=== PATIENT | male | born 1975 | race African-American/Black ===

== ENCOUNTER 2019-10-15 17:08 | Emergency (ER) | payer SELFPAY ==
[~2019-10-15] VITALS: Ht 188 cm; Wt 109.0 kg
[2019-10-15] MEDS ORDERED: IBUPROFEN 800MG TABLET PO ONE (17:30)
[2019-10-15] MEDS ORDERED: ACETAMINOPHEN 500MG TABLET PO ONE (17:30)
[2019-10-15 17:44] VITALS: BP 136/94
== END 2019-10-15 18:17 | disposition home or self-care (01) ==
LOC: ER 17:08
DX: S43.101A Unspecified dislocation of right acromioclavicular joint, initial encounter (principal); R03.0 Elevated blood-pressure reading, without diagnosis of hypertension; W01.0XXA Fall on same level from slipping, tripping and stumbling without subsequent striking against object, initial encounter; Y93.89 Activity, other specified; Y92.89 Other specified places as the place of occurrence of the external cause
CPT/HCPCS: 29105; 73030; 99283

== ENCOUNTER 2021-02-15 00:35 | Emergency (ER) | payer SELFPAY ==
[~2021-02-15] VITALS: Ht 188 cm; Wt 109.0 kg
[2021-02-15] MEDS ORDERED: ACETAMINOPHEN 325MG TABLET PO ONE (01:45)
[2021-02-15] MEDS ORDERED: TETANUS, DIPHTHERIA, PERTUSSIS VAC/PF 0.5ML (>7YR OLD) IM ONE (01:45)
[2021-02-15] MEDS ORDERED: BACITRACIN ZINC OINT UDPKT TOP ONE (01:45)
[2021-02-15] MEDS ORDERED: HYDROCODONE/ACETAMINOPHEN 5/325MG TABLET PO ONE (03:15)
[2021-02-15] MEDS ORDERED: HYDR-4001 MT (04:07)
[2021-02-15] MEDS ORDERED: NAPR-1176 MT (04:07)
[2021-02-15 05:06] VITALS: BP 149/100
== END 2021-02-15 05:07 | disposition home or self-care (01) ==
LOC: ER 00:49
DX: S82.491A Other fracture of shaft of right fibula, initial encounter for closed fracture (principal); S09.8XXA Other specified injuries of head, initial encounter; V49.49XA Driver injured in collision with other motor vehicles in traffic accident, initial encounter; Y93.89 Activity, other specified; Y92.89 Other specified places as the place of occurrence of the external cause; Y99.8 Other external cause status
CPT/HCPCS: 29505; 73590; 90471; 90715; 99285

== ENCOUNTER 2023-01-01 20:48 | Emergency (ER) | payer SELFPAY ==
[~2023-01-01] VITALS: Ht 185.4 cm; Wt 91.0 kg
[~2023-01-01 20:48] MED LIST: HYDR-4001 MT; NAPR-1176 MT
[2023-01-01 20:49] VITALS: BP 140/95; PULSE 72; RESP 12; TEMP 97.9; O2SAT 97
== END 2023-01-01 21:59 | disposition left against medical advice (07) ==
LOC: ER 20:48
DX: Z53.21 Procedure and treatment not carried out due to patient leaving prior to being seen by health care provider (principal)
CPT/HCPCS: 99281

== ENCOUNTER 2023-01-21 02:18 | Emergency (ER) | payer SELFPAY ==
[~2023-01-21] VITALS: Ht 188 cm; Wt 110.0 kg
[2023-01-21 02:30] VITALS: BP 128/81; PULSE 88; RESP 18; TEMP 98; O2SAT 99
== END 2023-01-21 06:24 | disposition left against medical advice (07) ==
LOC: ER 02:18
DX: Z53.21 Procedure and treatment not carried out due to patient leaving prior to being seen by health care provider (principal)
CPT/HCPCS: 99281

== ENCOUNTER 2024-02-14 20:43 | Emergency (ER) | payer MEDICAID ==
[~2024-02-14] VITALS: Ht 180.3 cm; Wt 90.0 kg
[2024-02-14 20:49] VITALS: O2SAT 98
[2024-02-14 21:39] LABS: BASOPHILS % 0.4 % (0.0-2.0); EOSINOPHILS % 0.4 % (0.0-5.0); HEMATOCRIT. 42.1 % (42.0-52.0); HEMOGLOBIN. 13.8 g/dL (14.0-18.0); LYMPHOCYTES % 23.1 % (20.0-50.0); MEAN CORPUSCULAR HEMOGLOBIN 31.9 pg (28.0-32.0); MEAN CORPUSCULAR HGB CONC 32.7 g/dL (31.0-37.0); MEAN CORPUSCULAR VOLUME 97.4 fL (80.0-94.0); MEAN PLATELET VOLUME 10.5 fl (7.4-10.4); NEUTROPHILS % 68.1 % (40.0-76.0); PLATELET 174 x1000/uL (130-400); RED BLOOD CELL COUNT 4.32 mill/uL (4.7-6.1); RED CELL DISTRIBUTION WIDTH 14.2 % (11.6-14.6); WHITE BLOOD COUNT 10.1 x1000/uL (4.5-11.0)
[2024-02-14 21:44] LABS: CHLORIDE 108 mEq/L (98-107); POTASSIUM 4.6 mEq/L (3.5-5.1); SODIUM 141 mEq/L (136-145)
[2024-02-14 21:45] LABS: CALCIUM 10.3 mg/dL (8.7-10.4); CARBON DIOXIDE 27 mEq/L (21-32)
[2024-02-14 21:50] LABS: CREATININE 1.1 mg/dL (0.6-1.3); GLUCOSE 95 mg/dL (70-105); UREA NITROGEN BLOOD 16 mg/dL (9-23)
[2024-02-14 21:51] LABS: AMMONIA < 17 uMol/L (<32); ETHANOL BLOOD < 10 mg/dL (<10); TROPONIN I HIGH SENSITIVITY < 4 ng/L (3.0-53)
[2024-02-14 21:52] LABS: ACETAMINOPHEN < 2 ug/mL (10-30)
[2024-02-14 21:55] LABS: THYROID STIMULATING HORMONE 0.68 uIU/mL (0.55-4.78)
[2024-02-14 23:00] VITALS: TEMP 97.8
[2024-02-14 23:57] LABS: CLARITY URINE CLEAR (CLEAR); COLOR URINE YELLOW (YELLOW); GLUCOSE URINE NEGATIVE (NEGATIVE); KETONES URINE NEGATIVE (NEGATIVE); LEUKOCYTE ESTERASE URINE NEGATIVE (NEGATIVE); NITRITE URINE NEGATIVE (NEGATIVE); OCCULT BLOOD URINE NEGATIVE (NEGATIVE); PH URINE 6.5 (4.5-8.0); PROTEIN URINE NEGATIVE (NEGATIVE); SPECIFIC GRAVITY URINE 1.008 (1.005-1.030); UROBILINOGEN URINE 0.2 E.U./dL (0.2-1.0)
[2024-02-15 00:04] LABS: *AMPHETAMINES SCREEN URINE NEGATIVE (NEGATIVE); *BENZODIAZEPINES SCREEN URINE NEGATIVE (NEGATIVE)
[2024-02-15 00:05] LABS: *BARBITURATES SCREEN URINE NEGATIVE (NEGATIVE); *COCAINE SCREEN URINE NEGATIVE (NEGATIVE); CANNABINOID URINE SCREEN NEGATIVE (NEGATIVE); ECSTASY MDMA SCREEN URINE NEGATIVE (NEGATIVE); METHADONE URINE SCREEN NEGATIVE (NEGATIVE); OPIATES URINE SCREEN NEGATIVE (NEGATIVE); PHENCYCLIDINE URINE SCREEN PRESUMTIVE POSITIVE (NEGATIVE)
[2024-02-15 01:34] VITALS: BP 133/88; PULSE 80; RESP 15
== END 2024-02-15 01:34 | disposition home or self-care (01) ==
LOC: ER 20:43
DX: S00.81XA Abrasion of other part of head, initial encounter (principal); R56.9 Unspecified convulsions; F16.10 Hallucinogen abuse, uncomplicated; X58.XXXA Exposure to other specified factors, initial encounter; Y93.89 Activity, other specified; Y92.89 Other specified places as the place of occurrence of the external cause; Y99.8 Other external cause status
CPT/HCPCS: 36415; 71045; 80048; 80305; 80307; 80320; 80329; 81003; 82140; 82962; 84443; 84484; 85025; 93005; 99285; G0480

== ENCOUNTER 2024-02-22 22:19 | Inpatient (IN) | payer MEDICAID ==
[~2024-02-22] VITALS: Ht 188 cm; Wt 102.5 kg
[2024-02-22 22:22] VITALS: O2SAT 96
[2024-02-22 23:25] LABS: BG BASE EXCESS -1.3 mmol/L (-2.0-2.0); BG CARBOXYHEMOGLOBIN 1.7 % (0.5-1.5); BG DEOXYHEMOGLOBIN 3.9 % (0.0-5.0); BG HCO3 ACT 24.5 mmol/L (22.0-26.0); BG METHEMOGLOBIN 0.1 % (0.0-1.5); BG OXYHEMOGLOBIN 94.3 % (94.0-97.0); BG PCO2 45.8 mmHg (35.0-45.0); BG PH 7.347 (7.350-7.450); BG TOTAL HEMOGLOBIN 12.9 g/dL (12.0-18.0); BG VENT MODE ROOM AIR
[2024-02-22 23:32] LABS: BASOPHILS % 0.3 % (0.0-2.0); EOSINOPHILS % 1.4 % (0.0-5.0); HEMATOCRIT. 38.5 % (42.0-52.0); HEMOGLOBIN. 12.5 g/dL (14.0-18.0); LYMPHOCYTES % 21.4 % (20.0-50.0); MEAN CORPUSCULAR HEMOGLOBIN 31.8 pg (28.0-32.0); MEAN CORPUSCULAR HGB CONC 32.4 g/dL (31.0-37.0); MEAN CORPUSCULAR VOLUME 98.3 fL (80.0-94.0); MEAN PLATELET VOLUME 10.6 fl (7.4-10.4); MONOCYTES % 7.1 % (2.0-8.0); NEUTROPHILS % 69.8 % (40.0-76.0); PLATELET 162 x1000/uL (130-400); RED BLOOD CELL COUNT 3.91 mill/uL (4.7-6.1); RED CELL DISTRIBUTION WIDTH 14.3 % (11.6-14.6); WHITE BLOOD COUNT 9.7 x1000/uL (4.5-11.0)
[2024-02-22 23:44] LABS: CHLORIDE 111 mEq/L (98-107); POTASSIUM 3.7 mEq/L (3.5-5.1); SODIUM 143 mEq/L (136-145)
[2024-02-22 23:45] LABS: CALCIUM 9.1 mg/dL (8.7-10.4); CARBON DIOXIDE 27 mEq/L (21-32)
[2024-02-22 23:50] LABS: GLUCOSE 117 mg/dL (70-105); UREA NITROGEN BLOOD 14 mg/dL (9-23)
[2024-02-22 23:52] LABS: ACETAMINOPHEN < 2 ug/mL (10-30); ALANINE AMINOTRANSFERASE 24 IU/L (10-49); ALBUMIN 4.1 g/dL (3.2-4.8); ASPARTATE AMINOTRANSFERASE 20 IU/L (<34)
[2024-02-22 23:53] LABS: BILIRUBIN TOTAL 0.3 mg/dL (0.1-1.0); PROTEIN TOTAL 6.6 g/dL (6.0-8.3)
[2024-02-22 23:56] LABS: BILIRUBIN DIRECT < 0.1 mg/dL (<=3.0); ETHANOL BLOOD < 10 mg/dL (<10)
[2024-02-23] MEDS: LEVETIRACETAM 500MG PREMIX 100 ML IV ONE ×2 (02:04→02:42)
[2024-02-23 02:59] LABS: TROPONIN I HIGH SENSITIVITY < 4 ng/L (3.0-53)
[2024-02-23] MEDS ORDERED: GUAIFENESIN 200MG/10ML SUGAR FREE UDC PO PRN (09:00)
[2024-02-23] MEDS ORDERED: CLONIDINE 0.1MG TABLET PO PRN (09:00)
[2024-02-23] MEDS ORDERED: MAGNESIUM/ALUMINUM HYDROXIDE/SIMETHICONE 30ML UDC PO PRN (09:00)
[2024-02-23] MEDS ORDERED: DOCUSATE SODIUM 100MG CAPSULE PO PRN (09:00)
[2024-02-23] MEDS ORDERED: ACETAMINOPHEN 325MG TABLET PO PRN (09:00)
[2024-02-23] MEDS ORDERED: ONDANSETRON HCL 4MG/2ML INJ IV PRN (09:00)
[2024-02-23] MEDS ORDERED: IPRATROPIUM/ALBUTEROL 0.5-3(2.5)MG/3ML NEB HHN PRN (09:00)
[2024-02-23] MEDS ORDERED: FAMO20TA8 PO (09:06)
[2024-02-23] MEDS ORDERED: BACL20TA PO (09:06)
[2024-02-23] MEDS ORDERED: PREG75CA76 PO (09:06)
[2024-02-23] MEDS ORDERED: GABA-532 PO (09:06)
[2024-02-23] MEDS ORDERED: FAMOTIDINE(NEO) 1MG/ML SUSP PO SCH (09:15)
[2024-02-23 10:00] VITALS: BP 126/94; PULSE 60; RESP 16; TEMP 36.14
[2024-02-23] MEDS: BACLOFEN 10MG TABLET PO SCH (10:52)
[2024-02-23] MEDS: FAMOTIDINE 20MG TABLET PO SCH (10:52)
[2024-02-23 11:29] LABS: PHOSPHORUS 3.4 mg/dL (2.5-4.9)
[2024-02-23 12:00] VITALS: BP 127/91; PULSE 61; RESP 12; TEMP 36.114; O2SAT 100
[2024-02-23 12:13] LABS: TROPONIN I HIGH SENSITIVITY < 4 ng/L (3.0-53)
[2024-02-23 16:00] VITALS: BP 120/73; PULSE 71; RESP 16; TEMP 36.22512; O2SAT 99
[2024-02-23] MEDS: GABAPENTIN 300MG CAPSULE PO SCH (18:17)
[2024-02-23 18:30] LABS: TROPONIN I HIGH SENSITIVITY < 4 ng/L (3.0-53)
[2024-02-23 20:00] VITALS: BP 106/65; PULSE 75; RESP 12; TEMP 37.16964; O2SAT 98
[2024-02-23] MEDS: ACETAMINOPHEN 325MG TABLET PO PRN (21:48)
[2024-02-23 22:38] LABS: TROPONIN I HIGH SENSITIVITY < 4 ng/L (3.0-53)
[2024-02-23 22:49] LABS: HEPATITIS B SURFACE ANTIGEN NEGATIVE (Negative)
[2024-02-23] MEDS: KETOROLAC 15MG/ML VIAL IV NR (23:09)
[2024-02-23 23:10] LABS: HEPATITIS C AB NON REACTIVE (Neg) (Negative)
[2024-02-24] VITALS: BP 117/68; PULSE 87; RESP 18; TEMP 36.89184; TEMP 36.9474; O2SAT 97; O2SAT 99
[2024-02-24 04:00] VITALS: BP 105/62; PULSE 72; RESP 12; TEMP 36.72516; O2SAT 96
[2024-02-24 06:30] LABS: BASOPHILS % 0.7 % (0.0-2.0); EOSINOPHILS % 1.6 % (0.0-5.0); HEMATOCRIT. 38.5 % (42.0-52.0); HEMOGLOBIN. 12.5 g/dL (14.0-18.0); LYMPHOCYTES % 34.8 % (20.0-50.0); MEAN CORPUSCULAR HEMOGLOBIN 31.5 pg (28.0-32.0); MEAN CORPUSCULAR HGB CONC 32.5 g/dL (31.0-37.0); MEAN CORPUSCULAR VOLUME 97.1 fL (80.0-94.0); MEAN PLATELET VOLUME 10.8 fl (7.4-10.4); MONOCYTES % 11.1 % (2.0-8.0); NEUTROPHILS % 51.8 % (40.0-76.0); PLATELET 167 x1000/uL (130-400); RED BLOOD CELL COUNT 3.96 mill/uL (4.7-6.1); RED CELL DISTRIBUTION WIDTH 14.5 % (11.6-14.6); WHITE BLOOD COUNT 6.4 x1000/uL (4.5-11.0)
[2024-02-24 06:39] LABS: CARBON DIOXIDE 30 mEq/L (21-32); CHLORIDE 110 mEq/L (98-107); POTASSIUM 4.6 mEq/L (3.5-5.1); SODIUM 145 mEq/L (136-145)
[2024-02-24 06:40] LABS: CALCIUM 9.3 mg/dL (8.7-10.4)
[2024-02-24 06:45] LABS: GLUCOSE 91 mg/dL (70-105); TRIGLYCERIDE 170 mg/dL (0-150); UREA NITROGEN BLOOD 14 mg/dL (9-23)
[2024-02-24 06:46] LABS: CHOLESTEROL 137 mg/dL (<200); LDL CHOLESTEROL 75 mg/dL (5-100)
[2024-02-24 06:47] LABS: HDL CHOLESTEROL 35 mg/dL (>55); T4 FREE 0.89 ng/dL (0.89-1.76)
[2024-02-24 06:48] LABS: THYROID STIMULATING HORMONE 0.83 uIU/mL (0.55-4.78)
[2024-02-24 08:00] VITALS: BP 107/75; PULSE 70; RESP 14; TEMP 36.50292; O2SAT 98
[2024-02-24 10:28] LABS: CLARITY URINE CLEAR (CLEAR); COLOR URINE YELLOW (YELLOW); GLUCOSE URINE NEGATIVE (NEGATIVE); KETONES URINE NEGATIVE (NEGATIVE); LEUKOCYTE ESTERASE URINE NEGATIVE (NEGATIVE); NITRITE URINE NEGATIVE (NEGATIVE); OCCULT BLOOD URINE NEGATIVE (NEGATIVE); PH URINE 7.5 (4.5-8.0); PROTEIN URINE NEGATIVE (NEGATIVE); SPECIFIC GRAVITY URINE 1.026 (1.005-1.030); UROBILINOGEN URINE 0.2 E.U./dL (0.2-1.0)
[2024-02-24 10:35] LABS: *AMPHETAMINES SCREEN URINE NEGATIVE (NEGATIVE); *BARBITURATES SCREEN URINE NEGATIVE (NEGATIVE); *BENZODIAZEPINES SCREEN URINE NEGATIVE (NEGATIVE); *COCAINE SCREEN URINE NEGATIVE (NEGATIVE); CANNABINOID URINE SCREEN PRESUMPTIVE POSITIVE (NEGATIVE); ECSTASY MDMA SCREEN URINE NEGATIVE (NEGATIVE); METHADONE URINE SCREEN NEGATIVE (NEGATIVE); OPIATES URINE SCREEN NEGATIVE (NEGATIVE); PHENCYCLIDINE URINE SCREEN PRESUMTIVE POSITIVE (NEGATIVE)
[2024-02-24 12:00] VITALS: BP 113/67; PULSE 71; RESP 14; TEMP 36.55848; O2SAT 99
[2024-02-24] MEDS: LEVETIRACETAM 500MG PREMIX 100 ML IV SCH (13:09)
[2024-02-24 16:00] VITALS: BP 99/70; PULSE 73; RESP 11; TEMP 36.33624; O2SAT 96
[2024-02-24 20:00] VITALS: BP 125/81; PULSE 81; RESP 13; TEMP 37.16964; O2SAT 98
[2024-02-24] MEDS ORDERED: LEVETIRACETAM 500MG in NACL 100ML PREMIX IV SCH (21:00)
== END 2024-02-24 22:05 | disposition left against medical advice (07) | DRG 53 ==
LOC: ER 22:19 → EDBEDREQ 22:56 → 5EST 02-23 01:12 → EDBEDREQSVC 02-23 01:17 → EDBEDREQ 02-23 01:17
PROVIDERS: ADMIT Preventive Medicine Clinical Informatics; ATTEND Preventive Medicine Clinical Informatics
DX: G40.909 Epilepsy, unspecified, not intractable, without status epilepticus (principal); F12.10 Cannabis abuse, uncomplicated; Z20.822 Contact with and (suspected) exposure to COVID-19; F17.210 Nicotine dependence, cigarettes, uncomplicated; Z53.29 Procedure and treatment not carried out because of patient's decision for other reasons; F41.9 Anxiety disorder, unspecified; R07.89 Other chest pain; R94.31 Abnormal electrocardiogram [ECG] [EKG]; Z63.5 Disruption of family by separation and divorce
CPT/HCPCS: 36415; 36600; 71045; 80048; 80061; 80076; 80305; 80307; 80320; 80329; 81003; 82375; 82805; 83036; 83735; 84100; 84439; 84443; 84484; 85025; 86705; 87340; 87426; 93005; 99291; J1885; J1953; G0480

== ENCOUNTER 2024-02-26 03:05 | Emergency (ER) | payer MEDICAID ==
[~2024-02-26] VITALS: Ht 185.4 cm; Wt 95.0 kg
[~2024-02-26 03:05] MED LIST changes: +BACL20TA PO; +FAMO20TA8 PO; +GABA-532 PO; +PREG75CA76 PO
[2024-02-26 03:17] VITALS: BP 122/81; PULSE 84; RESP 16; TEMP 98.2; O2SAT 99
== END 2024-02-26 04:28 | disposition home or self-care (01) ==
LOC: ER 03:05
DX: R56.9 Unspecified convulsions (principal)
CPT/HCPCS: 99281

== ENCOUNTER 2025-01-11 22:21 | Emergency (ER) | payer MEDICAID ==
[~2025-01-11] VITALS: Ht 182.9 cm; Wt 91.0 kg
[~2025-01-11 22:21] MED LIST changes: +GABA-1180 PO; -GABA-532 PO
[2025-01-11 22:24] VITALS: O2SAT 97
[2025-01-11] MEDS: IBUPROFEN 600MG TABLET PO STA (23:22)
[2025-01-12] MEDS ORDERED: IBUP-2029 MT (02:02)
[2025-01-12 04:45] VITALS: BP 127/80; PULSE 60; RESP 8; TEMP 36.6; O2SAT 100
== END 2025-01-12 05:29 | disposition home or self-care (01) ==
LOC: ER 22:21
DX: S82.891A Other fracture of right lower leg, initial encounter for closed fracture (principal); S60.221A Contusion of right hand, initial encounter; S00.81XA Abrasion of other part of head, initial encounter; Z79.899 Other long term (current) drug therapy; Z86.59 Personal history of other mental and behavioral disorders; W18.30XA Fall on same level, unspecified, initial encounter; Y93.89 Activity, other specified; Y92.89 Other specified places as the place of occurrence of the external cause; Y99.8 Other external cause status
CPT/HCPCS: 73130; 73502; 73560; 73600; 99285

== ENCOUNTER 2025-01-12 05:19 | Emergency (ER) | payer MEDICAID ==
[~2025-01-12] VITALS: Ht 185.4 cm; Wt 97.7 kg
[~2025-01-12 05:19] MED LIST changes: +IBUP-2029 MT
[2025-01-12 05:32] VITALS: O2SAT 99
[2025-01-12] MEDS: ACETAMINOPHEN 325MG TABLET PO ONE (06:50)
[2025-01-12 12:58] VITALS: BP 122/82; PULSE 79; RESP 16; TEMP 36.6; O2SAT 98
== END 2025-01-12 13:02 | disposition home or self-care (01) ==
LOC: ER 05:19
DX: S00.81XA Abrasion of other part of head, initial encounter (principal); S60.511A Abrasion of right hand, initial encounter; S80.212A Abrasion, left knee, initial encounter; S80.211A Abrasion, right knee, initial encounter; F12.10 Cannabis abuse, uncomplicated; M54.2 Cervicalgia; Z79.899 Other long term (current) drug therapy; Z98.890 Other specified postprocedural states; Z86.59 Personal history of other mental and behavioral disorders; W01.0XXA Fall on same level from slipping, tripping and stumbling without subsequent striking against object, initial encounter; Y93.89 Activity, other specified; Y92.89 Other specified places as the place of occurrence of the external cause; Y99.8 Other external cause status
CPT/HCPCS: 29515; 73110; 73562; 73630; 99284

== ENCOUNTER 2025-02-10 01:39 | Emergency (ER) | payer MEDICAID ==
[~2025-02-10] VITALS: Ht 185.4 cm; Wt 91.0 kg
[2025-02-10 01:49] VITALS: TEMP 36.7; O2SAT 100
[2025-02-10] MEDS ORDERED: ACET-2708 PO (06:18)
[2025-02-10 06:43] VITALS: BP 130/88; PULSE 83; RESP 12; O2SAT 100
== END 2025-02-10 06:50 | disposition home or self-care (01) ==
LOC: ER 01:39
DX: S00.93XA Contusion of unspecified part of head, initial encounter (principal); M25.511 Pain in right shoulder; M25.551 Pain in right hip; M25.571 Pain in right ankle and joints of right foot; F12.10 Cannabis abuse, uncomplicated; R51.9 Headache, unspecified; Z98.890 Other specified postprocedural states; Z79.899 Other long term (current) drug therapy; Z86.59 Personal history of other mental and behavioral disorders; W01.0XXA Fall on same level from slipping, tripping and stumbling without subsequent striking against object, initial encounter; Y93.01 Activity, walking, marching and hiking; Y92.89 Other specified places as the place of occurrence of the external cause; Y99.8 Other external cause status
CPT/HCPCS: 73030; 73502; 73610; 99284